=== PATIENT | female | born 1990 | race Caucasian/White ===

== ENCOUNTER 2017-06-11 07:47 | Emergency (ER) | payer MEDICAID ==
[~2017-06-11] VITALS: Ht 157.5 cm; Wt 61.7 kg
[2017-06-11 07:52] VITALS: BP 110/73
== END 2017-06-11 08:55 | disposition home or self-care (01) ==
LOC: ED 08:49
DX: L20.84 Intrinsic (allergic) eczema (principal)
CPT/HCPCS: 99281